=== PATIENT | female | born 1985 | race African-American/Black ===

== ENCOUNTER 2016-09-27 19:54 | Emergency (ER) | payer MEDICAID ==
[~2016-09-27] VITALS: Ht 160 cm; Wt 100.0 kg
[2016-09-27 21:56] VITALS: BP 114/66
[2016-09-27] MEDS ORDERED: IBUPROFEN 600MG TABLET PO ONE (22:00)
== END 2016-09-27 22:15 | disposition home or self-care (01) ==
LOC: ER 22:11
DX: K04.7 Periapical abscess without sinus (principal); F17.210 Nicotine dependence, cigarettes, uncomplicated; F12.10 Cannabis abuse, uncomplicated
CPT/HCPCS: 99283